=== PATIENT | male | born 1985 | race Caucasian/White ===

== ENCOUNTER 2020-06-07 13:08 | Emergency (ER) | payer OTHER ==
[~2020-06-07] VITALS: Ht 170.2 cm; Wt 81.6 kg
[2020-06-07 13:30] VITALS: BP 134/72
--- NOTE | 2020-06-07 13:49 | NUR ---
AMBULATED TO CHAIR E
--- NOTE | 2020-06-07 14:00 | NUR ---
34 YEAR OLD MALE COMPLAINS OF SEIZURE X 3 TIMES THIS MORNING, LAST ONE AT 11AM. PT STATES HE HAS NOT TAKEN KEPPRA MEDICATION FOR A WHILE. PT AOX4, BREATHING EVEN AND UNLABORED, SKIN WARM AND DRY. BED IN LOWEST POSITION, LOCKED, BED RAIL UPX1. SEIZURE PRECAUTIONS IN PLACE PMH - SEIZURE ALLERGIES - NKA
[2020-06-07] MEDS ORDERED: levETIRAcetam 1,000 MG in NACL 0.9% 100 ML IV ONE (14:20)
[2020-06-07] MEDS ORDERED: ONDANSETRON 4 MG/2 ML VIAL IVP ONE (14:20)
--- NOTE | 2020-06-07 14:23 | NUR ---
PHARMACY CALLED FOR [facility], STATES THEY WILL BRING MED
[2020-06-07 14:49] LABS: BASOPHILS % (AUTO) 0.3 % (0.0-2.0); HEMATOCRIT 46.7 % (36-52); HEMOGLOBIN 15.4 g/dL (12.0-18.0); LYMPHOCYTES # (AUTO) 0.5 K/uL (2.0-11.5); LYMPHOCYTES % (AUTO) 3.2 % (20.5-51.1); MEAN CORPUSCULAR HEMOGLOBIN 28 pg (27-31); MEAN CORPUSCULAR HGB CONC 33 g/dL (33-37); MEAN CORPUSCULAR VOLUME 84.9 fL (80-94); MONOCYTES # (AUTO) 0.8 K/uL (0.8-1.0); NEUTROPHILS # (AUTO) 13.9 K/uL (1.8-7.7); NEUTROPHILS % (AUTO) 91.5 % (42.2-75.2); PLATELET COUNT (AUTO) 216 K/uL (140-450); WHITE BLOOD COUNT (AUTO) 15.2 K/uL (4.8-10.8)
[2020-06-07 15:08] LABS: CREATININE 0.9 mg/dL (0.6-1.3); POTASSIUM 3.7 mmol/L (3.5-5.1)
[2020-06-07 15:21] LABS: ANION GAP 12.5 (8-16); CARBON DIOXIDE 28.2 mmol/L (21-32)
[2020-06-07 15:40] LABS: PHENOBARBITAL < 1 ug/ml (15-40); PHENYTOIN (DILANTIN) < 0.5 ug/ml (10.0-20.0)
[2020-06-07 17:23] VITALS: BP 134/72
--- NOTE | 2020-06-07 17:24 | NUR ---
Patient discharged with v/s stable. Written and verbal after care instructions ABOUT SEIZURES given and explained. Patient alert, oriented and verbalized understanding of instructions. Ambulatory with steady gait. All questions addressed prior to discharge. ID band removed. Patient advised to follow up with PMD. Rx of KEPPRA AND ZOFRAN given. Patient educated on indication of medication including possible reaction and side effects. Opportunity to ask questions provided and answered.
== END 2020-06-07 17:24 | disposition home or self-care (01) ==
LOC: MED 13:08
DX: R56.9 Unspecified convulsions (principal); R11.2 Nausea with vomiting, unspecified; Z91.14 Patient's other noncompliance with medication regimen
CPT/HCPCS: 36415; 70450; 71045; 80048; 80156; 80184; 80185; 85025; 93005; 96365; 99285; J1953